=== PATIENT | male | born 1980 | race Caucasian/White ===

== ENCOUNTER 2019-08-28 18:44 | Emergency (ER) | payer OTHER ==
[~2019-08-28] VITALS: Ht 182.9 cm; Wt 127.0 kg
[~2019-08-28 18:44] MED LIST: AMIODARONE HCL200 MG PO; COREG6.25 MG PO; LASIX20 MG PO; LOSARTAN POTASS25 MG PO; XARELTO20 MG PO
[2019-08-28] MEDS ORDERED: ACETAMINOPHEN 325 MG TAB PO ONE (19:00)
[2019-08-28] MEDS ORDERED: CLONIDINE HCL 0.1 MG TAB PO ONE (19:00)
--- NOTE | 2019-08-28 19:02 | Emergency Department Note ---
History of Present Illnes History of Present Illness Chief Complaint: COVID PUI History of Present Illness This is a 39 year old male presents to the ED with acute onset of fever and myalgias. Historian: Patient Arrival Mode: Car Onset (how long ago): day(s) (1) Radiation: Reports non-radiation Severity: moderate Onset quality: sudden Duration (how long): day(s) (1) Timing of current episode: constant Progression: worsening Chronicity: new Context: Denies recent illness Relieving factors: none Exacerbating factors: none Past Medical/Family History Physician Review I have reviewed the patient's past medical and family history. Any updates have been documented here. Past Medical History Recent Fever: Yes Clinical Suspicion of Infectio: Yes New/Unexplained Change in Ment: No Past Medical History: Hypertension, A-Fib Past Surgical History: None Social History Smoking Cessation: Never Smoker Alcohol Use: None Any Illegal Drug Use: No Other Last Tetanus: UNK Review of Systems Review of Systems Constitutional: Reports fever EENTM: Reports no symptoms Cardiovascular: Reports no symptoms Respiratory: Reports cough Gastrointestinal: Reports no symptoms Genitourinary: Reports no symptoms Musculoskeletal: Reports no symptoms Integumentary: Reports no symptoms Neurological: Reports no symptoms Psychological: Reports no symptoms Endocrine: Reports no symptoms Hematological/Lymphatic: Reports no symptoms Physical Exam Related Data Allergies: Coded Allergies: No Known Allergies (Unverified , 03/27/16) Triage Vital Signs Vital Signs Date Time Temp Pulse Resp B/P (MAP) Pulse Ox O2 Delivery O2 Flow Rate FiO2 08/28/19 18:50 101.7 116 18 181/132 95 Vital signs reviewed: Yes Physical Exam CONSTITUTIONAL Constitutional: Present well-developed, Present well-nourished HENT HENT: Present normocephalic, Present atraumatic, Present oropharynx clear/moist, Present nose normal HENT L/R: Present left ext ear normal, Present right ext ear normal EYES Eyes: Reports PERRL, Reports conjunctivae normal NECK Neck: Present ROM normal PULMONARY Pulmonary: Present effort normal, Present breath sounds normal CARDIOVASCULAR Cardiovascular: Present regular rhythm, Present heart sounds normal, Present capillary refill normal, Present normal rate GASTROINTESTINAL Abdominal: Present soft, Present nontender, Present bowel sounds normal GENITOURINARY Genitourinary: Present exam deferred SKIN Skin: Present warm, Present dry MUSCULOSKELETAL Musculoskeletal: Present ROM normal NEUROLOGICAL Neurological: Present alert, Present oriented x 3, Present no gross motor or sensory deficits PSYCHOLOGICAL Psychological: Present mood/affect normal, Present judgement normal Results Laboratory Lab results reviewed: Yes Laboratory comments Laboratory Tests Test 08/28/19 22:10 08/28/19 22:05 08/28/19 21:40 Urine Color Yellow (YELLOW) Urine Clarity Sl cloudy (CLEAR) Urine pH 5.5 (5 - 7) Urine Specific [place] 1.030 (1.010-1.025) Urine Protein >=300 (NEGATIVE) Urine Glucose (UA) Negative (NEGATIVE) Urine Ketones Negative (NEGATIVE) Urine Blood Moderate (NEGATIVE) Urine Nitrite Negative (NEGATIVE) Urine Bilirubin Negative (NEGATIVE) Urine Urobilinogen 0.2 mg/dL (0.2 - 1) Urine Leukocyte Esterase Negative (NEGATIVE) Urine RBC 6-10 /HPF (0-5) Urine WBC None /HPF (0-5) Urine Epithelial Cells Few /LPF (NONE) Urine Amorphous Sediment Few (FEW) Urine Bacteria Moderate /HPF (NONE) Urine Hyaline Casts 0-1 (0-1) White Blood Count 7.42 x10e3/uL (4.8-10.8) Red Blood Count 5.31 x10e6/uL (4.3-5.7) Hemoglobin 14.7 g/dL (14.0-18.0) Hematocrit 45.2 % (38.2-49.6) Mean Corpuscular Volume 85.1 fL (81-99) Mean Corpuscular Hemoglobin 27.7 pg (28-32) Mean Corpuscular Hemoglobin Concent 32.5 g/dL (31-35) Red Cell Distribution Width 16.0 % (11.7-14.4) Platelet Count 212 x10e3/uL (140-360) Neutrophils (%) (Auto) 74.9 % (38.7-80.0) Lymphocytes (%) (Auto) 9.7 % (18.0-39.1) Monocytes (%) (Auto) 14.2 % (4.4-11.3) Eosinophils (%) (Auto) 0.3 % (0.0-6.0) Basophils (%) (Auto) 0.5 % (0.0-1.0) Neutrophils # (Auto) 5.6 (2.1-6.9) Lymphocytes # (Auto) 0.7 (1.0-3.2) Monocytes # (Auto) 1.1 (0.2-0.8) Eosinophils # (Auto) 0.0 (0.0-0.4) Basophils # (Auto) 0.0 (0.0-0.1) Absolute Immature Granulocyte (auto 0.03 x10e3/uL (0-0.1) Sodium Level 138 mmol/L (136-145) Potassium Level 3.6 mmol/L (3.5-5.1) Chloride Level 103 mmol/L (98-107) Carbon Dioxide Level 21 mmol/L (22-29) Anion Gap 17.6 mmol/L (8-16) Blood Urea Nitrogen 8 mg/dL (7-26) Creatinine 1.12 mg/dL (0.72-1.25) Estimat Glomerular Filtration Rate > 60 ML/MIN (60-) BUN/Creatinine Ratio 7 (6-25) Glucose Level 98 mg/dL (74-118) Lactic Acid Level 1.4 mmol/L (0.5-2.0) Calcium Level 8.6 mg/dL (8.4-10.2) Total Bilirubin 0.3 mg/dL (0.2-1.2) Aspartate Amino Transf (AST/SGOT) 58 IU/L (5-34) Alanine Aminotransferase (ALT/SGPT) 51 IU/L (0-55) Alkaline Phosphatase 67 IU/L (40-150) Creatine Kinase 330 IU/L (30-200) Creatine Kinase MB 1.30 ng/mL (0-5.0) Troponin I 0.015 ng/mL (0-0.300) B-Type Natriuretic Peptide 16.0 pg/mL (0-100) Total Protein 7.7 g/dL (6.5-8.1) Albumin 3.7 g/dL (3.5-5.0) Globulin 4.0 g/dL (2.3-3.5) Albumin/Globulin Ratio 0.9 (0.8-2.0) Imaging Imaging results reviewed: Yes Impressions [place] [id number] Patient Name: RONALD VELA MR #: [id number] : 1980 Age/Sex: 39/M Req #: [id number] Adm Physician: Ordered by: CHRISTOPHER HA DO Report #: [id number] Location: ER Room/Bed: Procedure: [id number] DX/CHEST SINGLE (PORTABLE) Exam Date: 08/28/19 Exam Time: 2199 REPORT STATUS: Signed EXAMINATION: CHEST SINGLE (PORTABLE) INDICATION: Cough COMPARISON: None FINDINGS: TUBES and LINES: None. LUNGS: Normal lung volumes. Central bronchial wall thickening. Subtle perihilar and infrahilar haziness. PLEURA: No pleural effusion or pneumothorax. HEART AND MEDIASTINUM: The cardiomediastinal silhouette is unremarkable. BONES AND SOFT TISSUES: No acute osseous lesion. Soft tissues are unremarkable. UPPER ABDOMEN: No free air under the diaphragm. IMPRESSION: Findings of bronchitis. Subtle perihilar and infrahilar haziness can be due to atelectasis or pneumonia. Signed by: Gagan Clancy DO on 08/28/2019 11:07 PM Dictated By: GAGAN CLANCY DO 06 Transcribed By: SAMUEL on 08/28/192306 COPY TO: CHRISTOPHER HA DO~ Procedures 12 Lead ECG Interpretation ECG Interpretation : ECG: ECG 1 [place]: Interpreted by ED physician Date: Aug 28, 2019 Time: 21:59 Prior ECG tracings: reviewed Rhythm: sinus tachycardia Rate: tachycardia BPM: 102 ST segments normal: Yes T waves normal: Yes Clinical Impression: non-specific ECG Assessment & Plan Medical Decision Making MDM 39 yom with cough and fever highly suggestive of COVID-19 infection. noted elevated blood pressure in triage with PMH of CHF. Cardiac enzymes, EKG and patient placed on quality assurance monitor body to evaluate for pulmonary edema. patient with CXR suggestive of viral pneumonitis. Patient given Rx azithromycin, prednisone, and albuterol. Patient notified that he was COVID-19 positive at 0222 Assessment & Plan Final Impression: (1) Upper respiratory tract infection due to COVID-19 virus (2) Elevated blood pressure reading Depart Disposition: HOME, SELF-CARE Last Vital Signs Date Time Temp Pulse Resp B/P (MAP) Pulse Ox O2 Delivery O2 Flow Rate FiO2 08/28/19 18:50 101.7 116 18 181/132 95 Home Meds Reported Medications Furosemide (LASIX) 20 Mg Tablet, 20 MG PO DAILY PRN for SHORTNESS OF BREATH, #30 TAB 03/30/16 Losartan Potassium (LOSARTAN POTASSIUM) 25 Mg Tablet, 25 MG PO DAILY, #30 03/30/16 Carvedilol (COREG) 6.25 Mg Tab, 6.25 MG PO BID, #60 03/30/16 Rivaroxaban (XARELTO) 20 Mg Tablet, 20 MG PO DAILY for 30 Days 03/30/16 Amiodarone Hcl (AMIODARONE HCL) 200 Mg Tablet, 200 MG PO DAILY for 30 Days 03/30/16 Medications in the ED Acetaminophen 650 mg ONCE ONCE PO Last administered on 08/28/19at 22:01; Admin Dose 650 MG; Start 08/28/19 at 19:00; Stop 08/28/19 at 19:50; Status DC Clonidine HCl 0.1 mg ONCE ONCE PO Last administered on 08/28/19at 22:01; Admin Dose 0.1 MG; Start 08/28/19 at 19:00; Stop 08/28/19 at 19:50; Status DC Aspirin 81 mg PRN ONCE PO ; Start 08/28/19 at 19:15; Stop 08/28/19 at 19:50; Status DC Acetaminophen 650 mg STK-MED ONCE .ROUTE ; Start 08/28/19 at 22:04; Stop 08/28/19 at 21:59; Status DC Clonidine HCl 0.1 mg STK-MED ONCE .ROUTE ; Start 08/28/19 at 22:04; Stop 08/28/19 at 21:59; Status DC Acetaminophen 650 mg ONCE ONCE PO ; Start 08/28/19 at 19:00; Stop 08/28/19 at 19:01; Status UNV Clonidine HCl 0.1 mg ONCE ONCE PO ; Start 08/28/19 at 19:00; Stop 6/17/20 at 19:01; Status UNV HA,CHRISTOPHER DO Aug 28, 2019 19:02
[2019-08-28] MEDS ORDERED: ASPIRIN 81 MG CHEW TAB PO ONE (19:15)
[2019-08-28] MEDS ORDERED: CLONIDINE HCL 0.1 MG TAB ONE (22:04)
[2019-08-28] MEDS ORDERED: ACETAMINOPHEN 325 MG TAB ONE (22:04)
[2019-08-28 22:05] LABS: BASOPHILS % 0.5 % (0.0-1.0); EOSINOPHILS % 0.3 % (0.0-6.0); HEMATOCRIT 45.2 % (38.2-49.6); HEMOGLOBIN 14.7 g/dL (14.0-18.0); LYMPHOCYTES # (AUTO) 0.7 (1.0-3.2); LYMPHOCYTES % 9.7 % (18.0-39.1); MEAN CORPUSCULAR HEMOGLOBIN 27.7 pg (28-32); MEAN CORPUSCULAR HGB CONC 32.5 g/dL (31-35); MEAN CORPUSCULAR VOLUME 85.1 fL (81-99); MONOCYTES # (AUTO) 1.1 (0.2-0.8); MONOCYTES % 14.2 % (4.4-11.3); NEUTROPHILS # (AUTO) 5.6 (2.1-6.9); NEUTROPHILS % 74.9 % (38.7-80.0); PLATELET COUNT 212 x10e3/uL (140-360); RED BLOOD COUNT 5.31 x10e6/uL (4.3-5.7)
[2019-08-28 22:18] LABS: ALANINE AMINOTRANSFERASE 51 IU/L (0-55); ALBUMIN 3.7 g/dL (3.5-5.0); ALBUMIN/GLOBULIN RATIO 0.9 (0.8-2.0); ALKALINE PHOSPHATASE 67 IU/L (40-150); ANION GAP 17.6 mmol/L (8-16); BLOOD UREA NITROGEN 8 mg/dL (7-26); BUN/CREATININE RATIO 7 (6-25); CALCIUM 8.6 mg/dL (8.4-10.2); CARBON DIOXIDE 21 mmol/L (22-29); CHLORIDE 103 mmol/L (98-107); CREATINE KINASE 330 IU/L (30-200); CREATININE, SERUM 1.12 mg/dL (0.72-1.25); EST GLOMERULAR FILTRATION RATE > 60 ML/MIN (60-); GLUCOSE 98 mg/dL (74-118); POTASSIUM 3.6 mmol/L (3.5-5.1); SODIUM 138 mmol/L (136-145)
[2019-08-28 22:19] LABS: BILIRUBIN,URINE NEGATIVE (NEGATIVE); CLARITY,URINE SL CLOUDY (CLEAR); COLOR,URINE YELLOW (YELLOW); KETONES,URINE NEGATIVE (NEGATIVE); LEUKOCYTE ESTERASE ,URINE NEGATIVE (NEGATIVE); NITRITE,URINE NEGATIVE (NEGATIVE); PROTEIN,URINE DIPSTICK >=300 (NEGATIVE); URINE UROBILINOGEN 0.2 mg/dL (0.2 - 1)
[2019-08-28 22:29] LABS: AMORPHOUS SEDIMENT,URINE FEW (FEW); BACTERIA,URINE MODERATE /HPF; EPITHELIAL CELLS,URINE FEW /LPF; HYALINE CASTS 0-1 (0-1)
--- NOTE | 2019-08-28 23:11 | Diagnostic Imaging Report ---
EXAMINATION: CHEST SINGLE (PORTABLE) INDICATION: Cough COMPARISON: None FINDINGS: TUBES and LINES: None. LUNGS: Normal lung volumes. Central bronchial wall thickening. Subtle perihilar and infrahilar haziness. PLEURA: No pleural effusion or pneumothorax. HEART AND MEDIASTINUM: The cardiomediastinal silhouette is unremarkable. BONES AND SOFT TISSUES: No acute osseous lesion. Soft tissues are unremarkable. UPPER ABDOMEN: No free air under the diaphragm. IMPRESSION: Findings of bronchitis. Subtle perihilar and infrahilar haziness can be due to atelectasis or pneumonia. Signed by: Gagan Clancy DO on 08/28/2019 11:07 PM
[2019-08-28 23:46] VITALS: BP 149/112
== END 2019-08-28 23:58 | disposition home or self-care (01) ==
LOC: ER 18:44
DX: R50.9 Fever, unspecified (principal); R05 Cough; U07.1 COVID-19; J98.8 Other specified respiratory disorders; I10 Essential (primary) hypertension; I48.91 Unspecified atrial fibrillation
CPT/HCPCS: 36415; 71045; 80053; 81001; 82550; 82553; 83605; 83880; 84484; 85025; 87040; 87635; 93005; 99284

== ENCOUNTER 2022-07-04 06:50 | Inpatient (IN) | payer BC ==
[2022-06-30 07:48] LABS: BASOPHILS # (AUTO) 0.1 (0.0-0.1); BASOPHILS % 0.6 % (0.0-1.0); EOSINOPHILS # (AUTO) 0.3 (0.0-0.4); EOSINOPHILS % 3.7 % (0.0-6.0); HEMATOCRIT 46.7 % (38.2-49.6); HEMOGLOBIN 15.5 g/dL (14.0-18.0); LYMPHOCYTES # (AUTO) 1.3 (1.0-3.2); LYMPHOCYTES % 15.4 % (18.0-39.1); MEAN CORPUSCULAR HEMOGLOBIN 29.6 pg (28-32); MEAN CORPUSCULAR HGB CONC 33.2 g/dL (31-35); MEAN CORPUSCULAR VOLUME 89.1 fL (81-99); MONOCYTES # (AUTO) 0.7 (0.2-0.8); MONOCYTES % 8.4 % (4.4-11.3); NEUTROPHILS # (AUTO) 5.9 (2.1-6.9); NEUTROPHILS % 71.5 % (38.7-80.0); PLATELET COUNT 236 x10e3/uL (140-360); RED BLOOD COUNT 5.24 x10e6/uL (4.3-5.7); RED CELL DISTRIBUTION WIDTH 13.9 % (11.7-14.4)
[~2022-07-04] VITALS: Ht 185.4 cm; Wt 140.6 kg
[2022-07-04] VITALS (7 sets, daily range): BP systolic 136–138; BP diastolic 81–98
[~2022-07-04 06:50] MED LIST changes: +ATORVASTATIN CA20 MG PO; +ELIQUIS5 MG PO; +ENTRESTO 49 MG1 EACH PO; +METOPROLOL SUCC50 MG PO
[2022-07-04] MEDS ORDERED: LACTATED RINGER'S 1,000 ML ONE (07:35)
[2022-07-04] MEDS ORDERED: Morphine 2mg Syringe 2 MG/ML SYR IV PRN (08:30)
[2022-07-04] MEDS ORDERED: HYDROCODONE/APAP 7.5MG-325MG 1 EA TAB PO PRN (08:30)
[2022-07-04] MEDS ORDERED: ONDANSETRON HCL INJ 2MG/ML 2ML 2 MG/ML VIAL IV PRN (08:30)
[2022-07-04] MEDS ORDERED: BUPIVACAINE 0.25% 30ML SDV ONE (08:50)
[2022-07-04] MEDS ORDERED: SUGAMMADEX SODIUM 200 MG/2 ML VIAL IV ONE (11:43)
[2022-07-04] MEDS: HYDROMORPHONE 1MG/1ML INJ ONE ×5 (12:40→13:00)
[2022-07-04] MEDS ORDERED: BUPIVACAINE HCL 0.5% INJ 30 ML VIAL INJ ONE (13:09)
[2022-07-04] MEDS ORDERED: EPINEPHRINE HCL 1:1000 1ML 1 MG/ML AMP ONE (13:09)
[2022-07-04] MEDS: FENTANYL CITRATE/PF 100MCG/2 ML INJ ONE ×2 (13:15→13:48)
[2022-07-04] MEDS: SCOPOLAMINE 1 MG PATCH TOP SCH (13:15)
[2022-07-04] MEDS ORDERED: KETAMINE HCL INJ 50 MG/ML 10 ML VIAL ONE (13:29)
[2022-07-04] MEDS ORDERED: FENTANYL CITRATE/PF 100MCG/2 ML INJ ONE (13:29)
[2022-07-04] MEDS ORDERED: MIDAZOLAM HCL 2 MG/2 ML VIAL ONE (13:29)
[2022-07-04] MEDS: HYDRALAZINE HCL 20 MG/ML VIAL ONE ×2 (13:35→13:45)
[2022-07-04] MEDS ORDERED: DEXAMETHASONE SOD PHOS INJ 4 MG/ML SDV ONE (13:43)
[2022-07-04] MEDS ORDERED: POVIDONE IODINE 0.05% 0.05 % ML PO ONE (13:43)
[2022-07-04] MEDS ORDERED: LIDOCAINE HCL 2% LOCAL INJ 5 ML SDV VIAL INJ ONE (13:43)
[2022-07-04] MEDS ORDERED: ROCURONIUM BROMIDE 10 MG/ML 5ML VIAL IV ONE (13:43)
[2022-07-04] MEDS ORDERED: ONDANSETRON HCL INJ 2MG/ML 2ML 2 MG/ML VIAL ONE (13:43)
[2022-07-04] MEDS ORDERED: GLYCOPYRROLATE INJ 0.2 MG/ML VIAL ONE (13:43)
[2022-07-04] MEDS ORDERED: PROPOFOL IV EMULSION 10 MG/ML 20 ML VIAL ONE (13:43)
[2022-07-04] MEDS ORDERED: KETOROLAC TROMETHAMINE 30 MG/ML VIAL ONE (13:58)
[2022-07-04] MEDS ORDERED: LABETALOL HCL 5 MG/ML 20ML VIAL IV ONE (14:05)
[2022-07-04] MEDS ORDERED: ACETAMINOPHEN 1000 MG/100 ML 100 ML IV ONE (14:28)
[2022-07-04] MEDS ORDERED: ACETAMINOPHEN 1000 MG/100 ML IV ONE (14:30)
[2022-07-04] MEDS: SACUBITRIL/VALSARTAN 1 EACH TABLET PO SCH (17:21)
[2022-07-04] MEDS: AMIODARONE HCL 200 MG TAB PO SCH (17:21)
[2022-07-04] MEDS: METOPROLOL SUCCINATE 50 MG TAB XL PO SCH (17:21)
[2022-07-04] MEDS ORDERED: ATORVASTATIN 20 MG TAB PO SCH (21:00)
[2022-07-04] MEDS: ENOXAPARIN SOD INJ 40 MG/0.4 ML SYR SC SCH (21:33)
[2022-07-05 01:42] VITALS: BP 141/96
[2022-07-05 05:59] LABS: BASOPHILS % 0.2 % (0.0-1.0); HEMOGLOBIN 14.2 g/dL (14.0-18.0); LYMPHOCYTES # (AUTO) 0.9 (1.0-3.2); LYMPHOCYTES % 7.5 % (18.0-39.1); MEAN CORPUSCULAR HEMOGLOBIN 29.2 pg (28-32); MEAN CORPUSCULAR HGB CONC 32.3 g/dL (31-35); MEAN CORPUSCULAR VOLUME 90.5 fL (81-99); MONOCYTES # (AUTO) 0.9 (0.2-0.8); MONOCYTES % 7.3 % (4.4-11.3); NEUTROPHILS % 84.7 % (38.7-80.0); PLATELET COUNT 245 x10e3/uL (140-360); RED BLOOD COUNT 4.86 x10e6/uL (4.3-5.7); RED CELL DISTRIBUTION WIDTH 13.9 % (11.7-14.4)
[2022-07-05 06:05] VITALS: BP 156/100
[2022-07-05] MEDS: LACTATED RINGER'S 1,000 ML IV SCH ×2 (06:27→08:00)
[2022-07-05 06:32] LABS: ALBUMIN 3.9 g/dL (3.5-5.0); ALBUMIN/GLOBULIN RATIO 1.1 (0.8-2.0); ANION GAP 17.3 mmol/L (8-16); CALCIUM 9.2 mg/dL (8.4-10.2); CREATININE, SERUM 1.2 mg/dL (0.72-1.25); PHOSPHORUS 3.8 MG/DL (2.3-4.7); POTASSIUM 4.3 mmol/L (3.5-5.1)
[2022-07-05 08:00] VITALS: BP 168/105
[2022-07-05] MEDS: SACUBITRIL/VALSARTAN 1 EACH TABLET PO SCH (08:39)
[2022-07-05] MEDS: METOPROLOL SUCCINATE 50 MG TAB XL PO SCH (08:39)
[2022-07-05] MEDS: ENOXAPARIN SOD INJ 40 MG/0.4 ML SYR SC SCH (08:39)
[2022-07-05] MEDS: AMIODARONE HCL 200 MG TAB PO SCH (08:40)
[2022-07-05 08:58] VITALS: BP 168/105
== END 2022-07-05 10:07 | disposition home or self-care (01) | DRG 620 ==
LOC: OR 06:50 → PACU V 11:42 → MED/SURG 15:35
PROVIDERS: ADMIT Internal Medicine; ATTEND Internal Medicine
PROC: 0DB64Z3 Excision of Stomach, Percutaneous Endoscopic Approach, Vertical (ICD-10-PCS; principal; 2022-07-04 10:41)
DX: E66.01 Morbid (severe) obesity due to excess calories (principal); I50.22 Chronic systolic (congestive) heart failure; Z68.41 Body mass index [BMI] 40.0-44.9, adult; I11.0 Hypertensive heart disease with heart failure; I48.0 Paroxysmal atrial fibrillation; K76.0 Fatty (change of) liver, not elsewhere classified; G47.33 Obstructive sleep apnea (adult) (pediatric); Z79.01 Long term (current) use of anticoagulants; Z20.822 Contact with and (suspected) exposure to COVID-19
CPT/HCPCS: 0223U; 36415; 80053; 83735; 84100; 85025; 93005; 94799; C1713; J0171; J0690; J1100; J1170; J1650; J1885; J2001; J2250; J2270; J2405